=== PATIENT | female | born 1985 | race African-American/Black ===

== ENCOUNTER 2018-07-11 06:07 | Emergency (ER) | payer BC ==
[2018-07-11] MEDS ORDERED: Lorazepam 1 MG TAB ONE ×2 (06:22→15:29)
[2018-07-11 06:42] LABS: Bilirubin Small (Negative); Blood, Urine Small (Negative); Clarity Turbid (Clear); Glucose, Urine (Dipstick) Negative (Negative); Leukocyte Negative (Negative); Nitrite Negative (Negative); Protein, Urine (Dipstick) 30 mg/dL (Neg-Trace); Specific Gravity, Urine 1.025 (1.005-1.030); Urobilinogen 0.2 mg/dL (0.2-1.0)
[2018-07-11 06:43] LABS: #Basophils 0.1 thou/uL (0.0-0.2); #Monocytes 0.9 thou/uL (0.11-0.59); #Neutrophils 10.8 thou/uL (1.40-6.50); %Basophils 0.7 % (0.0-1.0); %Lymphocytes 7.9 % (21.0-51.0); %Monocytes 6.7 % (0.0-10.0); %Neutrophils 84.7 % (42.0-75.0); Hemoglobin 13.8 g/dL (12.0-16.0); Mean Corpuscular HGB CONC 34.8 g/dL (32.0-36.0); Mean Corpuscular Hemoglobin 33.4 pg (27.0-31.0); Mean Corpuscular Volume 96.1 fL (78.0-98.0); Mean Platelet Volume 6.9 fL (7.4-10.4); Platelet Count 280 thou/uL (130-400); RBC Distribution Width 11.7 % (11.5-14.5); Red Blood Cell (RBC) Count 4.14 mill/uL (4.20-5.40); White Blood Cell (WBC) Count 12.7 thou/uL (4.8-10.8)
[2018-07-11 06:45] LABS: Pregnancy Test - Urine (BHCG) Negative (Negative); Pregu Control Background? CLEAR/WHITE (CLR/WHITE); Pregu Control Bar Appear? YES (CONTROL BAR); Specific Gravity 1.025 (1.002-1.036)
[2018-07-11 06:48] LABS: Amphetamine Not Detected (NotDetected); Barbiturates Screen Not Detected (NotDetected); Benzodiazepine Screen Not Detected (NotDetected); Cocaine Metabolite Screen Not Detected (NotDetected); Medtox Control Line Valid? VALID (VALID); Methadone Not Detected (NotDetected); Methamphetamine Not Detected (NotDetected); Opiate Screen Not Detected (NotDetected); Oxycodone Screen Not Detected (NotDetected); Phencyclidine (PCP) Not Detected (NotDetected); THC/Cannabinoid Screen Detected (NotDetected); Tricyclic Screen Not Detected (NotDetected)
[2018-07-11 06:51] LABS: Bacteria/HPF 4+ HPF (None Seen); Hyaline Casts/LPF NONE SEEN LPF (0-3 Hyaline); RBC/HPF 0-3 HPF (0-3); Squamous Epithelial 0-3 HPF (0-3); WBC/HPF 0-3 HPF (0-3)
[2018-07-11 06:52] LABS: Acetaminophen Less than 6.0 mcg/mL (10.0-30.0); Alcohol Less than 10 mg/dL (Less than 10); Salicylate Less than 8.0 mg/dL (15.0-30.0)
[2018-07-11 06:54] LABS: ALT (SGPT) 15 U/L (8-55); AST (SGOT) 17 U/L (5-34); Albumin 4.6 g/dL (3.5-5.0); Alkaline Phosphatase 48 U/L (40-150); Anion Gap 16 mmol/L (10-20); BUN (Urea Nitrogen) 9 mg/dL (7.0-18.7); Bilirubin, Total 0.7 mg/dL (0.2-1.2); CK (CPK) 211 U/L (29-168); Calc. Creatinine Clearance 0 mL/min (70-130); Calcium 9.8 mg/dL (7.8-10.44); Carbon Dioxide 17 mmol/L (22-29); Chloride 108 mmol/L (98-107); Estimated GFR-MDRD 90; Globulin 2.3 g/dL (2.4-3.5); Glucose 117 mg/dL (70-105); Potassium 3.4 mmol/L (3.5-5.1); Protein, Total 6.9 g/dL (6.0-8.3); Sodium 138 mmol/L (136-145)
--- NOTE | 2018-07-11 07:48 | CT ---
HEAD CT WITHOUT CONTRAST: HISTORY: Altered mental status. Visual hallucinations. COMPARISON: None. FINDINGS: No parenchymal hemorrhage. No extraaxial hematoma. No midline shift. The basilar cisterns are garcía nt. Brain volume, age appropriate. Cortical dwyer-white differentiation is reserved. No hydrocephalus. Intact calvarium. Adequate aeration of sinuses and mastoid air cells. IMPRESSION: No acute intracranial process. POS: [facility]
[2018-07-11] MEDS ORDERED: Cephalexin 500 MG CAP ONE (12:46)
== END 2018-07-11 21:54 ==
LOC: SCSER 06:07
DX: F30.9 Manic episode, unspecified (principal); F29 Unspecified psychosis not due to a substance or known physiological condition
CPT/HCPCS: 36415; 70450; 80053; 80306; 80307; 81003; 81015; 81025; 82140; 82550; 83735; 84443; 85025; 93005; 96360